=== PATIENT | female | born 1995 ===

== ENCOUNTER 2023-11-24 15:47 | Emergency (ER) | payer OTHER, MEDICAID, SELFPAY ==
[2023-11-24] VITALS (19 sets, daily range): BP systolic 97–116; BP diastolic 56–76; PULSE 75–99; RESP 13–24; O2SAT 96–100; BMI 26.6
--- NOTE | 2023-11-24 16:01 | ED_ITS ---
HPI - Altered Mental Status <Salma Little - Last Filed: 11/26/23 07:31> General Chief Complaint: Psychiatric Symptoms Stated Complaint: LOC Time Seen by Provider: 11/24/23 15:59 Source: patient, EMS, RN notes reviewed and old records reviewed Mode of arrival: EMS Limitations: no limitations History of Present Illness HPI narrative: 28-year-old female meds to ETOH and recent methamphetamine abuse. Patient was found outside in a grassy area with another individual. She did not have a shirt on, she appears altered. She has what might be dirt or something else smear at all over her. Patient can tell me her name she does not answer about where she is. She has a little bit of nonsensical speech but can answer questions. She indicates that she takes ibuprofen and aspirin sometimes. She denies any other prescription meds. States she has had a prior ankle surgery. Admits to alcohol use unclear exactly how much, that is methamphetamine use. Indicates that she has had some recently. Patient diffuse IV with EMS but has otherwise been cooperative with them. Related Data Allergies Allergy/AdvReac Type Severity Reaction Status Date / Time No Allergy Information Allergy Verified 11/24/23 16:18 Available Review of Systems <Salma Little - Last Filed: 11/26/23 07:31> Review of Systems ROS Unobtainable: All systems reviewed & are unremarkable except as noted in HPI and below Exam <Salma Little - Last Filed: 11/26/23 07:31> Narrative Exam Narrative: GEN: Disheveled female default, alert and oriented self, patient has clear speech although sometimes whispering, nonsensical, patient appears to be in moderate distress. HEENT: Atraumatic, pupils are equal round reactive to light, extraocular movements are intact, nares are clear, no nystagmus, TMs are clear with no fluid, there is no conjunctival pallor. Throat is clear without any exudates, erythema, tonsillar enlargement or uvular deviation HEART: Regular rate and rhythm without murmur, clicks, rubs. LUNGS:Lungs clear to auscultation, no wheezes, rales, crackles, chest moves symmetrically ABD:bowel sounds normal, soft, non-tender, no guarding, rebound, rigidity, no masses noted, no hepatosplenomegaly :No CVA tenderness MSCL: Non-tender, no muscle atrophy, muscles strength 5/5 upper and lower extremities, full range of motion. NEURO:CN 2-12 intact, sensation normal, reflexes 2/4 upper and lower extremities PSYCH: No SI, HI appreciated. Unclear if patient is having auditory hallucinations or just talking she sometimes talks when asked questions but also answers questions in the same way. Does not appear to be having any visual hallucinations. Initial Vital Signs Initial Vital Signs: Vital Signs Pulse Rate 88 11/24/23 15:56 Respiratory Rate 21 11/24/23 15:56 Blood Pressure 97/62 11/24/23 15:56 Pulse Oximetry 97 11/24/23 15:56 <Salma Mar MD - Last Filed: 11/25/23 06:37> Initial Vital Signs Initial Vital Signs: Vital Signs Pulse Rate 88 11/24/23 15:56 Respiratory Rate 21 11/24/23 15:56 Blood Pressure 97/62 11/24/23 15:56 Pulse Oximetry 97 11/24/23 15:56 Course <Salma Little DO - Last Filed: 11/26/23 07:31> Orders Ordered: Discontinued Medications Sodium Chloride (Normal Saline 0.9%) 1,000 mls @ 1,000 mls/hr IV BOLUS ONE Stop: 11/24/23 16:58 Last Admin: 11/24/23 16:25 Dose: Not Given Documented By: SPF Vital Signs Vital signs: Vital Signs - 8 hr 11/24/23 23:00 11/24/23 23:00 11/24/23 23:30 Pulse Rate 94 H 75 Respiratory Rate 20 24 Blood Pressure 115/65 Pulse Oximetry 96 99 Oxygen Delivery Method Room Air 11/25/23 00:00 11/25/23 00:30 11/25/23 01:00 Pulse Rate 77 82 82 Respiratory Rate 17 16 16 Blood Pressure Pulse Oximetry 99 100 98 Oxygen Delivery Method Room Air 11/25/23 01:30 11/25/23 02:00 11/25/23 02:04 Pulse Rate 82 96 H Respiratory Rate 15 23 Blood Pressure 122/84 Pulse Oximetry 98 100 Oxygen Delivery Method Room Air 11/25/23 02:04 11/25/23 02:30 11/25/23 03:00 Pulse Rate 83 80 80 Respiratory Rate 16 16 16 Blood Pressure Pulse Oximetry 99 98 99 Oxygen Delivery Method Room Air 11/25/23 03:00 11/25/23 03:30 11/25/23 04:00 Pulse Rate 81 Respiratory Rate 24 Blood Pressure 113/79 119/72 Pulse Oximetry 100 Oxygen Delivery Method 11/25/23 04:00 11/25/23 04:30 11/25/23 05:00 Pulse Rate 79 84 79 Respiratory Rate 24 18 15 Blood Pressure Pulse Oximetry 100 99 99 Oxygen Delivery Method Room Air 11/25/23 05:01 11/25/23 05:01 11/25/23 05:30 Pulse Rate 79 75 Respiratory Rate 15 12 Blood Pressure 111/77 Pulse Oximetry 99 99 Oxygen Delivery Method Room Air 11/25/23 06:00 11/25/23 06:01 11/25/23 06:01 Pulse Rate 80 75 Respiratory Rate 17 16 Blood Pressure 121/71 Pulse Oximetry 99 93 Oxygen Delivery Method Room Air <Salma Mar MD - Last Filed: 11/25/23 06:37> Orders Ordered: Discontinued Medications Sodium Chloride (Normal Saline 0.9%) 1,000 mls @ 1,000 mls/hr IV BOLUS ONE Stop: 11/24/23 16:58 Last Admin: 11/24/23 16:25 Dose: Not Given Documented By: SPF Vital Signs Vital signs: Vital Signs - 8 hr 11/24/23 23:00 11/24/23 23:00 11/24/23 23:30 Pulse Rate 94 H 75 Respiratory Rate 20 24 Blood Pressure 115/65 Pulse Oximetry 96 99 Oxygen Delivery Method Room Air 11/25/23 00:00 11/25/23 00:30 11/25/23 01:00 Pulse Rate 77 82 82 Respiratory Rate 17 16 16 Blood Pressure Pulse Oximetry 99 100 98 Oxygen Delivery Method Room Air 11/25/23 01:30 11/25/23 02:00 11/25/23 02:04 Pulse Rate 82 96 H Respiratory Rate 15 23 Blood Pressure 122/84 Pulse Oximetry 98 100 Oxygen Delivery Method Room Air 11/25/23 02:04 11/25/23 02:30 11/25/23 03:00 Pulse Rate 83 80 80 Respiratory Rate 16 16 16 Blood Pressure Pulse Oximetry 99 98 99 Oxygen Delivery Method Room Air 11/25/23 03:00 11/25/23 03:30 11/25/23 04:00 Pulse Rate 81 Respiratory Rate 24 Blood Pressure 113/79 119/72 Pulse Oximetry 100 Oxygen Delivery Method 11/25/23 04:00 11/25/23 04:30 11/25/23 05:00 Pulse Rate 79 84 79 Respiratory Rate 24 18 15 Blood Pressure Pulse Oximetry 100 99 99 Oxygen Delivery Method Room Air 11/25/23 05:01 11/25/23 05:01 11/25/23 05:30 Pulse Rate 79 75 Respiratory Rate 15 12 Blood Pressure 111/77 Pulse Oximetry 99 99 Oxygen Delivery Method Room Air 11/25/23 06:00 11/25/23 06:01 11/25/23 06:01 Pulse Rate 80 75 Respiratory Rate 17 16 Blood Pressure 121/71 Pulse Oximetry 99 93 Oxygen Delivery Method Room Air MDM - Altered Mental Status <Salma Little, - Last Filed: 11/26/23 07:31> Lab Data 11/24/23 19:08 11/24/23 19:08 Labs: Lab Results 11/24/23 11/25/23 11/25/23 Range/Units 19:08 00:03 00:03 WBC 5.6 (4.5-11.0) X10^3/uL RBC 3.15 L (4.0-5.2) X10^6/uL Hgb 10.0 L (12.0-16.0) g/dL Hct 29.5 L (36-46) % MCV 93.7 (80-100) fL MCH 31.9 (26-34) PG MCHC 34.0 (30-36) % RDW 15.4 H (11.6-14.8) % Plt Count 281 (150-400) X10^3/uL Neut % (Auto) 57.0 (50-75) % Lymph % (Auto) 27.8 (25-40) % Potter % (Auto) 11.0 (3-14) % Eos % (Auto) 3.8 (2-4) % Baso % (Auto) 0.4 (0-2) % Neut # (Auto) 3200 (9120-1818) /uL Lymph # (Auto) 1600 (5100-6393) /uL Potter # (Auto) 600 (0-900) /uL Eos # (Auto) 200 (0-450) /uL Baso # (Auto) 0 (0-100) /uL Sodium 137 (137-145) mmol/L Potassium 3.4 (3.4-5.1) mmol/L Chloride 108 H (98-107) mmol/L Carbon Dioxide 26 (22-32) mmol/L BUN 12 (7-17) mg/dL Creatinine 0.58 (0.52-1.04) mg/dL Estimated GFR > 60 (>60) mL/min BUN/Creatinine Ratio 20.7 (6-22) Glucose 102 H (70-100) mg/dL Lactate 0.6 L (0.7-2.1) mmol/L Calcium 8.1 L (8.4-10.2) mg/dL Total Bilirubin 0.4 (0.2-1.3) mg/dL AST 25 (14-36) IU/L ALT 19 (<35) IU/L Alkaline Phosphatase 77 (38-126) U/L Total Protein 6.3 (6.3-8.2) g/dL Albumin 3.3 L (3.5-5.0) g/dL Globulin 3.0 (1.7-4.1) g/dL Albumin/Globulin Ratio 1.1 (1.0-2.8) TSH 0.973 (0.47-4.68) uIU/mL Serum , Qual Negative (Negative) Urine Color Yellow Urine Appearance Clear Urine pH 6.5 Normal (4.5-8.0) Ur Specific [place] 1.020 (1.000-1.035) Urine Protein Trace H (Negative) Urine Glucose (UA) Negative (Negative) g/dL Urine Ketones Negative (NEGATIVE) Urine Occult Blood 3+ H (Negative) Urine Nitrate Positive H (Negative) Urine Bilirubin Negative (NEGATIVE) Urine Urobilinogen 1.0 (0.2) E.U./dL Ur Leukocyte Esterase 1+ H (NEGATIVE) Urine RBC 30-100/hpf H (0-5/HPF) Urine WBC 30-100/hpf H (0-5/HPF) Ur Squamous Epith Cells 10-30 /hpf H (0-5/HPF) Urine Bacteria Many (>30) H (None) Urine Mucus 1+ H (Negative) Ur Culture Indicated? Specimen cultured Vol Urine Centrifuged 10ml (spun) Salicylates < 1.0 (<20) mg/dL U Opiates 300ng/mL cut Negative (Negative) Ur Oxycodone Screen Negative (Negative) Urine Methadone Screen Negative (Negative) Acetaminophen < 10 (10-30) ug/mL Ur Barbiturates Screen Negative (Negative) U Tricyclic Antidepress Negative (Negative) Ur Phencyclidine Scrn Negative (Negative) Ur Amphetamines Screen Positive H (Negative) U Methamphetamines Scrn Positive H (Negative) Ur MDMA Scrn (Ecstasy) Negative (Negative) U Benzodiazepines Scrn Negative (Negative) Urine Cocaine Screen Negative (Negative) U Marijuana (THC) Screen Positive H (Negative) Urine Specific [place] Normal (Normal) Ethyl Alcohol < 10 ( - 10) mg/dL Ur Creatinine Normal (Normal) MDM Narrative Medical decision making narrative: 28-year-old female appears intoxicated, patient does admit to recent alcohol and methamphetamine use. Initial pressure was somewhat low improved without any other interventions. Patient signed out to Dr. Mar while continuing to be monitored. <Salma Mar MD - Last Filed: 11/25/23 06:37> Lab Data Labs: Lab Results 11/24/23 11/25/23 11/25/23 Range/Units 19:08 00:03 00:03 WBC 5.6 (4.5-11.0) X10^3/uL RBC 3.15 L (4.0-5.2) X10^6/uL Hgb 10.0 L (12.0-16.0) g/dL Hct 29.5 L (36-46) % MCV 93.7 (80-100) fL MCH 31.9 (26-34) PG MCHC 34.0 (30-36) % RDW 15.4 H (11.6-14.8) % Plt Count 281 (150-400) X10^3/uL Neut % (Auto) 57.0 (50-75) % Lymph % (Auto) 27.8 (25-40) % Potter % (Auto) 11.0 (3-14) % Eos % (Auto) 3.8 (2-4) % Baso % (Auto) 0.4 (0-2) % Neut # (Auto) 3200 (0149-2852) /uL Lymph # (Auto) 1600 (1119-9665) /uL Potter # (Auto) 600 (0-900) /uL Eos # (Auto) 200 (0-450) /uL Baso # (Auto) 0 (0-100) /uL Sodium 137 (137-145) mmol/L Potassium 3.4 (3.4-5.1) mmol/L Chloride 108 H (98-107) mmol/L Carbon Dioxide 26 (22-32) mmol/L BUN 12 (7-17) mg/dL Creatinine 0.58 (0.52-1.04) mg/dL Estimated GFR > 60 (>60) mL/min BUN/Creatinine Ratio 20.7 (6-22) Glucose 102 H (70-100) mg/dL Lactate 0.6 L (0.7-2.1) mmol/L Calcium 8.1 L (8.4-10.2) mg/dL Total Bilirubin 0.4 (0.2-1.3) mg/dL AST 25 (14-36) IU/L ALT 19 (<35) IU/L Alkaline Phosphatase 77 (38-126) U/L Total Protein 6.3 (6.3-8.2) g/dL Albumin 3.3 L (3.5-5.0) g/dL Globulin 3.0 (1.7-4.1) g/dL Albumin/Globulin Ratio 1.1 (1.0-2.8) TSH 0.973 (0.47-4.68) uIU/mL Serum , Qual Negative (Negative) Urine Color Yellow Urine Appearance Clear Urine pH 6.5 Normal (4.5-8.0) Ur Specific [place] 1.020 (1.000-1.035) Urine Protein Trace H (Negative) Urine Glucose (UA) Negative (Negative) g/dL Urine Ketones Negative (NEGATIVE) Urine Occult Blood 3+ H (Negative) Urine Nitrate Positive H (Negative) Urine Bilirubin Negative (NEGATIVE) Urine Urobilinogen 1.0 (0.2) E.U./dL Ur Leukocyte Esterase 1+ H (NEGATIVE) Urine RBC 30-100/hpf H (0-5/HPF) Urine WBC 30-100/hpf H (0-5/HPF) Ur Squamous Epith Cells 10-30 /hpf H (0-5/HPF) Urine Bacteria Many (>30) H (None) Urine Mucus 1+ H (Negative) Ur Culture Indicated? Specimen cultured Vol Urine Centrifuged 10ml (spun) Salicylates < 1.0 (<20) mg/dL U Opiates 300ng/mL cut Negative (Negative) Ur Oxycodone Screen Negative (Negative) Urine Methadone Screen Negative (Negative) Acetaminophen < 10 (10-30) ug/mL Ur Barbiturates Screen Negative (Negative) U Tricyclic Antidepress Negative (Negative) Ur Phencyclidine Scrn Negative (Negative) Ur Amphetamines Screen Positive H (Negative) U Methamphetamines Scrn Positive H (Negative) Ur MDMA Scrn (Ecstasy) Negative (Negative) U Benzodiazepines Scrn Negative (Negative) Urine Cocaine Screen Negative (Negative) U Marijuana (THC) Screen Positive H (Negative) Urine Specific [place] Normal (Normal) Ethyl Alcohol < 10 ( - 10) mg/dL Ur Creatinine Normal (Normal) MDM Narrative Medical decision making narrative: 28-year-old female appears intoxicated, patient does admit to recent alcohol and methamphetamine use. Initial pressure was somewhat low improved without any other interventions. Patient signed out to Dr. Mar while continuing to be monitored. Dr. Mar -care of patient is signed out to me. Patient observed overnight, no acute events noted. In the morning patient was awake, alert, in no acute distress. She was angry at being discharged and refused to sign paperwork Discharge Plan Departure Patient Disposition: Home Clinical Impression: Alcohol intoxication, Amphetamine abuse Stand Alone Forms: Patient Portal/API
--- NOTE | 2023-11-24 16:20 | PC.NURSE ---
Pt unable to express her needs, stating she does like meth. black, dirt like substance around pt's mouth, hands, and inner thighs. EMS reports she said it was charcoal. Substance is non-foul smelling, bed bath cleansing by [employer]. She denied IV or blood draw and prepared to assault staff. Provider notified. New orders to allow pt to metabolize any drugs she is on, monitor vitals signs, Do not take blood.
--- NOTE | 2023-11-24 16:25 | PC.NURSE ---
pt came in via EMS with no shirt and a dried black substance all over her legs, karlene area, face, and hands. I washed all of these areas with water and soap. A bruise starting from patients thigh going down to patients calf was noticed and REDDY Breaux was notified. Bleeding from patients karlene area was also noticed and reported to her RN. the patient was unable to tell me about what was on her and where the bruising and blood comes from.
--- NOTE | 2023-11-24 18:15 | PC.NURSE ---
I asked pt if she is feeling better, pt states my head hurts. I asked her if she knows where she is, pt responds hospital, [facility]. Pt unable to describe what happened today. Pt whispering, unable to hear. I asked pt to speak up, pt states whispers chicken. I asked her if she is hungry, pt responds yes. Denies nausea.
--- NOTE | 2023-11-24 19:01 | PC.NURSE ---
Pt more alert, states she tripped prior to being brought into the ER. Pt provided with PO cranberry juice and crackers. She continues to deny having a lab draw.
[2023-11-24 19:24] LABS: Lactate (Lactic Acid) 0.6 mmol/L (0.7-2.1)
[2023-11-24 19:25] LABS: Add Manual Diff / Slide Review NO; Basophils Absolute Auto 0 /uL (0-100); Basophils Percent Auto 0.4 % (0-2); Eosinophils Absolute Auto 200 /uL (0-450); Eosinophils Percent Auto 3.8 % (2-4); Hematocrit 29.5 % (36-46); Lymphocytes Absolute Auto 1600 /uL (1100-4500); Lymphocytes Percent Auto 27.8 % (25-40); Mean Corpuscular Hemoglobin 31.9 PG (26-34); Mean Corpuscular Volume 93.7 fL (80-100); Monocytes Absolute Auto 600 /uL (0-900); Neutrophils Absolute Auto 3200 /uL (1500-7000); Platelet Count 281 X10^3/uL (150-400); Red Blood Cell Count 3.15 X10^6/uL (4.0-5.2); Red Cell Distribution Width 15.4 % (11.6-14.8); White Blood Cell Count 5.6 X10^3/uL (4.5-11.0)
[2023-11-24 19:26] LABS: Acetaminophen < 10 ug/mL (10-30); Alanine Aminotransferase 19 IU/L (<35); Albumin 3.3 g/dL (3.5-5.0); Albumin Globulin Ratio 1.1 (1.0-2.8); Alkaline Phosphatase 77 U/L (38-126); Aspartate Aminotransferase 25 IU/L (14-36); BUN Creatinine Ratio 20.7 (6-22); Bilirubin Total 0.4 mg/dL (0.2-1.3); Blood Urea Nitrogen 12 mg/dL (7-17); Calcium 8.1 mg/dL (8.4-10.2); Carbon Dioxide 26 mmol/L (22-32); Chloride 108 mmol/L (98-107); Estimated Glomerular Filt Rate > 60 mL/min (>60); Ethanol (ETOH) < 10 mg/dL; Glucose 102 mg/dL (70-100); HEMOLYSIS < 15 (0-50); Potassium 3.4 mmol/L (3.4-5.1); Salicylate < 1.0 mg/dL (<20); Sodium 137 mmol/L (137-145); Total Protein 6.3 g/dL (6.3-8.2)
[2023-11-24 19:30] LABS: Pregnancy Test Serum,Qual Negative (Negative)
[2023-11-24 20:19] LABS: Thyroid Stimulating Hormone 0.973 uIU/mL (0.47-4.68)
--- NOTE | 2023-11-24 20:45 | PC.NURSE ---
This nurse and CHERRI Brennan tech had the patient stand up while we applied clean pad and briefs. Patient states she is on menstrual cycle. Patient is drowsy, A/Ox3. Does not know the year. Patient needed mod assistance getting up and standing patient up. Patient back in rney both rails up, call light in reach
[2023-11-25] VITALS (16 sets, daily range): BP systolic 111–122; BP diastolic 71–84; PULSE 75–96; RESP 12–24; O2SAT 93–100
--- NOTE | 2023-11-25 00:04 | PC.NURSE ---
Patient alert and oriented. States she is here because she passed out from drugs. Ambulated patient half way around the unit and back. Patient was able to use bedside commode and drink water. Patient reports her friend is Devika and her phone number is , ok to call her. Phone went to [email or web address].
[2023-11-25 00:15] LABS: Appearance Urine UA CLEAR; Bilirubin Urine UA NEGATIVE (NEGATIVE); Color Urine UA YELLOW; Glucose Urine UA NEGATIVE (Negative); Ketones Urine UA NEGATIVE (NEGATIVE); Leukocyte Esterase Urine UA 1+ (NEGATIVE); Nitrite Urine UA POSITIVE (Negative); Occult Blood Urine UA 3+ (Negative); Protein Urine UA TRACE (Negative)
[2023-11-25 00:16] LABS: pH Urine UA 6.5 (4.5-8.0)
[2023-11-25 00:18] LABS: UR Morphine/Opiate cutoff 300 Negative (Negative); Ur Creatinine Normal (Normal); Ur Specific Gravity Normal (Normal); Urine Amphetamines Positive (Negative); Urine Barbiturates Negative (Negative); Urine Benzodiazepines Negative (Negative); Urine Cocaine Negative (Negative); Urine MDMA Negative (Negative); Urine Methadone Negative (Negative); Urine Methamphetamines Positive (Negative); Urine Oxycodone Negative (Negative); Urine Phencyclidine Negative (Negative); Urine Tetrahydrocannabinol Positive (Negative); Urine Tricyclic Antidepressant Negative (Negative); Urine pH Normal (Normal)
[2023-11-25 00:26] LABS: Urine Volume 10mL (spun)
[2023-11-25 00:27] LABS: Bacteria Urine Many (>30); Culture Indicated Urine Specimen Cultured; Mucus Urine 1+ (Negative); RBC Urine 30-100/HPF (0-5/HPF); Squamous Epithelial Cell Urine 10-30 /HPF (0-5/HPF); WBC Urine 30-100/HPF (0-5/HPF)
== END 2023-11-25 06:21 | disposition home or self-care (01) ==
PROVIDERS: Emergency Provider Emergency Medicine
DX: F10.929 Alcohol use, unspecified with intoxication, unspecified (principal); F15.10 Other stimulant abuse, uncomplicated
CPT/HCPCS: 36415; 80053; 80305; 80320; 80329; 81001; 83605; 84443; 84703; 85025; 87077; 87086; 87186; 99284; G0480